=== PATIENT | female | born 1990 | race African-American/Black ===

== ENCOUNTER 2023-06-13 22:40 | Observation (INO) | payer BC, SELFPAY ==
--- NOTE | ~2023-06-13 | US_ITS ---
EXAMINATION: US pelvic complete w TV DATE: 06/14/2023 12:50 INDICATION: Abnormal uterine bleeding. TECHNIQUE: Multiple transabdominal and transvaginal sonographic images of the pelvis were obtained. COMPARISON: None. FINDINGS: TRANSABDOMINAL ULTRASOUND: The uterus measures 11.5 x 6.4 x 6.8 cm. There is physiologic free fluid in the pelvis. TRANSVAGINAL ULTRASOUND: The endometrial complex measures 17 mm in thickness. The right ovary measures 2.6 x 1.9 x 3.5 cm. The left ovary measures 3.2 x 2.2 x 2.3 cm. There is normal vascular flow in the ovaries. IMPRESSION: 1. Thickened endometrial complex, which may be endometrial hyperplasia or polyp. Reviewed, dictated and finalized at location A. IMPRESSION: 1. Thickened endometrial complex, which may be endometrial hyperplasia or polyp .
[2023-06-13 22:42] VITALS: BP 168/74; PULSE 96; RESP 16; TEMP 36.3; O2SAT 100
--- NOTE | 2023-06-13 22:49 | ECG_ITS ---
SEE SCANNED COPY FOR CONFIRMED REPORT MTDD
[2023-06-13 23:09] LABS: Basophils Absolute Auto 0.1 K/mm3 (0.0-0.1); Basophils Percent Auto 0.7 % (0.2-1.2); Eosinophils Absolute Auto 0.1 K/mm3 (0-0.3); Eosinophils Percent Auto 1.2 % (0-4.4); Immature Granulocyte Absolute 0.03 K/mm3 (0.00-0.031); Immature Granulocyte Percent A 0.3 % (0-0.5); Immature Platelet Fraction Pct 1.6 % (0.9-11.2); Lymphocytes Absolute Auto 4.13 K/mm3 (0.9-3.2); Lymphocytes Percent Auto 36.2 % (18.3-44.2); Mean Corpuscular HGB Conc 28.5 g/dl (32-36); Mean Corpuscular Volume 59.7 fl (80-100); Mean Platelet Volume 8.9 fl (7.4-10.4); Monocytes Absolute Auto 0.9 K/mm3 (0.1-0.6); Monocytes Percent Auto 7.5 % (2.6-8.5); Neutrophils Absolute Auto 6.2 K/mm3 (1.3-6.7); Neutrophils Percent Auto 54.1 % (45.5-73.1); Nucleated Red Blood Cells Perc 0.4 % (0.0-0.2); Platelet Count Result 621 k/mm3 (150-375); Red Blood Count 3.35 M/mm3 (4.2-5.4); Red Cell Distribution Width 32.2 % (11.5-14.5); White Blood Count 11.4 K/mm3 (4.5-10.0)
[2023-06-13 23:17] LABS: Alanine Aminotransferase 18 U/L (6-35); Albumin Level 3.9 g/dL (3.5-5.1); Alkaline Phosphatase 108 U/L (38-126); Anion Gap 5 mmol/L (4-12); Aspartate Amino Transferase 31 U/L (14-36); Bilirubin,Total 0.4 mg/dL (0.2-1.3); Blood Urea Nitrogen 9 mg/dL (7-17); Calcium 8.7 mg/dL (8.4-10.2); Carbon Dioxide 25 mmol/L (22-30); Chloride 107 mmol/L (98-107); Estimated CRCL calculation 95 ml/min; Estimated Glomerular Filt Rate > 60; Glucose 111 mg/dL (65-110); Potassium 3.4 mmol/L (3.4-5.0); Sodium 137 mmol/L (137-145)
--- NOTE | 2023-06-13 23:32 | ED.SOB ---
HPI - SOB/Dyspnea General Chief Complaint: Shortness of Breath/Dyspnea Stated Complaint: sob Time Seen by Provider: 06/13/23 22:52 History of Present Illness HPI Narrative: Patient presenting here with shortness of breath on exertion, swelling to her feet, she states every time this happens it is because her blood levels are too low and she needs transfusions, she has been having heavy vaginal bleeding for the last 2 and half week, passing clots, she is having to change out 2 pads every 2-3 hours. Related Data Allergies Allergy/AdvReac Type Severity Reaction Status Date / Time No Known Allergies Allergy Verified 06/13/23 22:45 Review of Systems Review of Systems: CONST: No fever. HEENT: No sore throat C/V: No chest pain RESP: Dyspnea on exertion GI: No abdominal pain : Heavy vaginal bleeding M/S: No joint pain. SKIN: No rash. NEURO: [No headache or focal numbness or weakness] PSYCH: [No depression] Exam Narrative: EXAMINATION OF ORGAN SYSTEMS/BODY AREAS: Constitutional: Vital signs per nursing GENERAL:[No acute distress, non-toxic appearing.] HEAD: Normal with no signs of head trauma. EYES: EOMI, pale ENT: Hearing grossly intact LUNGS: Nonlabored breathing. HEART: [Regular rate and rhythm] ABD: [Soft], [nontender to palpation] EXT: Normal range of motion SKIN: Pale NEURO: [Alert and oriented x 3. No gross focal sensory or strength deficits.] PSYCH: Normal affect Course Vital Signs Vital signs: Vital Signs Temperature 97.3 F L 06/13/23 22:42 Pulse Rate 96 06/13/23 22:42 Respiratory Rate 16 06/13/23 22:42 Blood Pressure 168/74 H 06/13/23 22:42 Pulse Oximetry 100 06/13/23 22:42 Oxygen Delivery Room Air 06/13/23 22:42 Temperature 97.3 F L 06/13/23 22:42 Pulse Rate 96 06/13/23 22:42 Respiratory Rate 16 06/13/23 22:42 Blood Pressure 168/74 H 06/13/23 22:42 Pulse Oximetry 100 06/13/23 22:42 Oxygen Delivery Room Air 06/13/23 22:42 MDM - SOB/Dyspnea MDM Narrative Medical decision making narrative: Patient presenting here with dyspnea on exertion and heavy vaginal bleeding, on exam she is quite pale, on exam she does have active bleeding but no severe active hemorrhage. Hemoglobin is 5.7, I did order 2 units of transfusion, but she is still having active bleeding I did feel she would benefit from observation at this time and to be seen by OBGYN so she can have initiation of OCPs for source control. Patient agreeable to this plan. Discussed with OBGYN. Lab Data 06/13/23 23:02 06/13/23 23:02 Labs: Lab Results 06/13/23 06/13/23 Range/Units 23:02 23:35 WBC 11.4 H (4.5-10.0) K/mm3 RBC 3.35 L (4.2-5.4) M/mm3 Hgb 5.7 L* (12.0-15.0) g/dL Hct 20.0 L* (37.0-47.0) % MCV 59.7 L (80-100) fl MCH 17.0 L (26-34) pg MCHC 28.5 L (32-36) g/dl RDW 32.2 H (11.5-14.5) % Plt Count 621 H (150-375) k/mm3 MPV 8.9 (7.4-10.4) fl Immature Gran % (Auto) 0.3 (0-0.5) % Neut % (Auto) 54.1 (45.5-73.1) % Lymph % (Auto) 36.2 (18.3-44.2) % Heard % (Auto) 7.5 (2.6-8.5) % Eos % (Auto) 1.2 (0-4.4) % Baso % (Auto) 0.7 (0.2-1.2) % Lymph # (Auto) 4.13 H (0.9-3.2) K/mm3 Heard # (Auto) 0.9 H (0.1-0.6) K/mm3 Eos # (Auto) 0.1 (0-0.3) K/mm3 Baso # (Auto) 0.1 (0.0-0.1) K/mm3 Abs Immat Gran (auto) 0.03 (0.00-0.031) K/mm3 Absolute Neuts (auto) 6.2 (1.3-6.7) K/mm3 Absolute Nucleated RBC 0.050 H (0.0-0.012) K/mm3 Nucleated RBC % 0.4 H (0.0-0.2) % Platelet Estimate Increased (Adequate) Large Platelets Present % Immature Plt Fraction 1.6 (0.9-11.2) % Hypochromasia 2+ Poikilocytosis 2+ Anisocytosis 2+ Sickle Cells 1+ Ovalocytes 2+ Stomatocytes 1+ Schistocytes 1+ PT Pending INR Pending APTT Pending Sodium 137 (137-145) mmol/L Potassium 3.4 (3.4-5.0) mmol/L Chloride 107 (98-107) mmol/L Carbon Jonathon
[2023-06-13 23:36] LABS: Hemoglobin 5.7 g/dL (12.0-15.0)
[2023-06-13 23:41] LABS: Platelet Estimate Increased (Adequate)
[2023-06-13 23:42] LABS: Anisocytosis 2+; Hypochromasia 2+; Poikilocytosis 2+; Sickle Cells 1+; Stomatocytes 1+
[2023-06-13 23:43] LABS: Ovalocytes 2+
[2023-06-13 23:45] LABS: Large Platelets Present; Schistocytes 1+
[2023-06-14] VITALS (16 sets, daily range): BP systolic 96–136; BP diastolic 57–90; PULSE 76–96; RESP 14–18; TEMP 36.4–37.1; O2SAT 99–100; BMI 45.2; BMI 44.1
[2023-06-14 00:10] LABS: Prothrombin Time 13.5 Seconds (11.1-14.7)
[2023-06-14 00:11] LABS: Partial Thromboplastin Time 25.9 Seconds (22.3-36.8)
--- NOTE | 2023-06-14 01:29 | ADMGEN ---
This patient, Matthieu Castillo, was admitted to Medical Room 349-01. Patient/family oriented to hospital policies and general routines including ID bracelet, bed and alarms, visiting hours, pain management, procedures, bathroom and other care routines, personal items, smoking policy, room service/diet, and visiting hours. Information on how to activate the Rapid Response Team has been discussed. Patient/Family are encouraged to report perceived risks to care and to ask questions if they do not understand what they are told or what they should do.
[2023-06-14 02:14] LABS: Pregnancy On Board Control Positive; Urine Pregnancy Test Negative
[2023-06-14] MEDS: SODIUM CHLORIDE 0.9% IV 250 ML 30 ML IV CONT (07:00)
[2023-06-14 10:54] LABS: Hematocrit 30.6 % (37.0-47.0); Hemoglobin 8.6 g/dL (12.0-15.0)
--- NOTE | 2023-06-14 17:27 | PM.IMHP ---
H&P: HPI History of Present Illness Date/Time: 06/14/23 17:27 Chief Complaint: This patient is a 32-year-old female with severe menorrhagia. She bled down to hemoglobin of 5. She was transfused 2 units packed red blood cells. She is feeling better. She continues to bleed some. Patient needs definitive treatment of her menorrhagia. It has been going on for several months. She has profound bleeding. We agreed to follow-up in my office very soon and arrange for definitive surgical treatment. We agreed to treat with progesterone for the next several days. She denies any chest pain shortness of breath. She denies any nausea, vomiting, fever, chills. To follow-up in the office very soon and to start progesterone pills daily. Review of Systems Review of Systems: All systems reviewed & are unremarkable except as noted in HPI and below Constitutional: Constitutional: Denies chills, Denies fatigue, Denies fever(s) and Denies weakness Eyes: Eyes: Denies blurry vision, Denies change in vision, Denies loss of peripheral vision, Denies loss of vision, Denies other visual disturbances and Denies eye pain ENT: Denies vertigo, Denies dizziness, Denies hearing loss, Denies mouth pain, Denies nasal obstruction, Denies neck mass and Denies neck pain Cardiovascular: Cardiovascular: Denies chest pain, Denies diaphoresis, Denies syncope, Denies leg edema and Denies dyspnea Respiratory: Respiratory: Denies chest congestion, Denies cough, Denies hemoptysis, Denies dyspnea and Denies wheezing Gastrointestinal: Gastrointestinal: Denies abdominal pain, Denies constipation, Denies diarrhea, Denies nausea and Denies vomiting Genitourinary: Genitourinary: Denies hematuria, Denies change in libido, Denies nocturia, Denies genital lesions, Denies flank pain and Denies urinary urgency Musculoskeletal: Musculoskeletal: Denies abnormal gait, Denies back pain, Denies myalgias, Denies arthralgias, Denies joint swelling, Denies muscle weakness and Denies neck pain Integumentary/Breasts: Skin/Breast: Denies swelling, Denies breast pain, Denies breast mass, Denies dry skin, Denies nipple discharge, Denies unusual bruising and Denies jaundice Neurologic: Denies Neuro-related abnormal movements, Denies Abnormal speech present, Denies abnormal gait, Denies behavioral changes, Denies confusion, Denies vertigo, Denies dizziness, Denies syncope, Denies loss of vision, Denies memory loss, Denies convulsions and Denies weakness Psychiatric: Psychiatric: Denies abnormal sleep pattern, Denies behavioral changes, Denies change in libido, Denies confusion, Denies depression, Denies anhedonia and Denies memory loss Endocrine: Endocrine: Reports no additional endocrine complaints, Denies change in libido and Denies fatigue Hematologic/Lymphatic: Hematologic/Lymphatic: Reports no additional hematologic/lymphatic complaints Allergic/Immunologic: Allergic/Immunologic: Reports no additional allergic/immunologic complaints and Denies wheezing [facility] Family History Family History (Updated 06/14/23 @ 01:[address] RN) Mother Multiple myeloma Heart attack Social History Social History Smoking status: Never smoker Alcohol intake: never Substance use: never Substance use type: does not use Do You Feel Safe in your Home?: Yes Lack of Transportation: No Lack of Food: Never True Current Housing: I Have Housing Concerned About Future Housing: No Difficulty Paying Gas/Electric Bills: No Difficulty Paying for Meds: No Currently Unemployed: No Education: Trade/Vocational Certificate Difficulty w/ Childcare or Family Care: No Spiritual care concerns: No Meds Home Medications and Allergies Home Medications Medication Instructions Recorded Confirmed Type tranexamic acid 650 mg tablet 1,300 mg PO TID 06/14/23 06/14/23 History Allergies Allergy/AdvReac Type Severity Reaction Status Date / Time No Known Allergies Allergy Verified
[2023-06-14] MEDS: ESTROGENS, CONJUGATED 25 MG/5 ML VIAL IV PUSH (18:12)
[2023-06-15] MEDS: ESTROGENS, CONJUGATED 25 MG/5 ML VIAL IV PUSH (01:20)
[2023-06-15 03:44] VITALS: BP 122/60; PULSE 81; RESP 18; TEMP 36.5; O2SAT 98
[2023-06-15 08:10] VITALS: O2SAT 97
--- NOTE | 2023-06-15 09:42 | P.PNOB_ITS ---
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 [employer] C[employer]UER OPERATOR - PN: Obj Data Vital Signs Vital Signs: Vital Signs - 24 hr 06/14/23 14:00 06/14/23 20:41 06/14/23 20:00 Temperature 98.6 F 97.6 F Pulse Rate 76 86 86 Respiratory Rate 16 16 16 Blood Pressure 127/84 131/86 Pulse Oximetry 100 100 100 Oxygen Delivery Room Air Fraction of Inspired Oxygen 21 06/14/23 21:39 06/15/23 03:44 06/15/23 08:10 Temperature 97.7 F Pulse Rate 81 Respiratory Rate 18 Blood Pressure 122/60 Pulse Oximetry 100 98 97 Oxygen Delivery Room Air Room Air Fraction of Inspired Oxygen Intake/Output Intake/Output: Intake & Output 06/12/23 06/13/23 06/14/23 06/15/23 23:59 23:59 23:59 23:59 Intake Total 2766 650 Output Total 200 1100 Balance 2566 -450 Meds/Results Medications: Active Medications Generic Name Dose Route Start Last Admin Trade Name Cl PRN Reason Stop Dose Admin Estrogens Conjugated 25 mg 06/14/23 18:00 06/15/23 01:20 Estrogens, Conjugated 25 Mg/5 Ml Vial IV PUSH 25 mg Q8H MÓNICA Administration Radiology Results: ITS Impressions Pelvic/Transvag US 06/14/23 13:45 IMPRESSION: 1. Thickened endometrial complex, which may be endometrial hyperplasia or polyp. Labs 06/14/23 10:43 06/13/23 23:02 Labs: Laboratory Results - last 24 hr 06/14/23 10:43 Hgb 8.6 L Hct 30.6 L
--- NOTE | 2023-06-15 09:44 | PM.DS ---
DS: Admitting Diagnosis Discharge Date 06/15/2023 Admitting Diagnosis menorrhagia, anemia DS: Discharge Diagnosis Discharge Diagnosis (1) Menorrhagia: Code(s): N92.0 - Excessive and frequent menstruation with regular cycle Status: Acute (2) Anemia: Code(s): D64.9 - Anemia, unspecified Status: Acute DS: Summary Hospital Course Hospital Course: 32-year-old female [facility] emergency [facility] for severe menorrhagia and severe anemia. She was treated with medications to get her bleeding was stopped. Pelvic ultrasound performed. She was observed for 2 days. She was discharged home after resolution of her bleeding and sent out with hormonal treatment until the following week until she will see me for planning of a definitive surgical treatment. Time Spent with Patient Time attestation: Total time spent providing and/or coordinating discharge services: DS: Data Data Completed and Pending Labs on day of discharge: Labs from last 24 hours 06/14/23 10:43 Hgb 8.6 L Hct 30.6 L Discharge Plan Discharge Discharging Clinician: Allan Combs Patient Disposition: Home, Self-Care Activity: pelvic rest Diet: regular Patient Instructions: Antibiotic Form Stand Alone Forms: General Discharge Information Follow-up/Referrals: Allan Combs MD [Physician] - Discharge Medications: New progesterone micronized [Prometrium] 200 mg capsule 200 mg PO HS 14 Days Qty: 14 0RF progesterone micronized [Prometrium] 200 mg capsule 200 mg PO HS 14 Days Qty: 14 0RF Discontinued tranexamic acid 650 mg tablet 1,300 mg PO TID Rx Instructions: medication not started yet Date of admission: 06/14/23 00:08 Primary Care Provider: UNKNOWN,DOCTOR Admitting Provider: Allan Combs Attending physician on admission: Allan Combs Condition: Stable
== END 2023-06-15 10:30 | disposition home or self-care (01) ==
LOC: ANHED 06-14 00:09 → ANH3MED 06-14 00:20
PROVIDERS: Admitting Provider Obstetrics & Gynecology; Emergency Provider Emergency Medicine; Visit Provider Obstetrics & Gynecology
DX: N92.0 Excessive and frequent menstruation with regular cycle (principal); D64.9 Anemia, unspecified; D75.839 Thrombocytosis, unspecified; Z79.899 Other long term (current) drug therapy
CPT/HCPCS: 36415; 36430; 76830; 76856; 80053; 81025; 85014; 85018; 85025; 85055; 85610; 85730; 86850; 86900; 86901; 86923; 93005; 96361; 96374; 99285; G0378; G0379; J1410; J7050; P9016